=== PATIENT | female | born 1950 | race Caucasian/White ===

== ENCOUNTER 2021-09-06 09:58 | Emergency (ER) | payer MEDICARE ==
[~2021-09-06] VITALS: Ht 152.4 cm; Wt 69.4 kg
[~2021-09-06 09:58] MED LIST: LEVOTHYROXINE50 MCG PO; PRAVACHOL40 MG PO; VITAMIN D50000 UNI1 PO
[2021-09-06] MEDS ORDERED: PILOCARPINE HCL5 MG PO (10:21)
[2021-09-06] MEDS ORDERED: LISINOPRIL20 MG PO (10:21)
[2021-09-06] MEDS ORDERED: OXYBUTYNIN CHLO10 MG PO (10:21)
--- NOTE | 2021-09-07 13:47 | EKG ---
[facility] [address] [facility] [place], [place] [address] Signed Normal sinus rhythm Normal ECG No previous ECGs available Confirmed by YARIEL CARABALLO MD ([id number] on 09/07/2021 1:47:42 PM Electronically Signed By: YARIEL CARABALLO MD 09/07/21 1347 PATIENT NAME: ALANA ADAM Electrocardiogram DATE OF : 48 PHYSICIAN: YARIEL CARABALLO MD REPORT #: [id number] REPORT IS CONFIDENTIAL AND NOT TO BE RELEASED WITHOUT AUTHORIZATION
== END 2021-09-06 15:20 | disposition home or self-care (01) ==
LOC: ED 09:58
DX: R07.89 Other chest pain (principal); I10 Essential (primary) hypertension; E03.9 Hypothyroidism, unspecified; Z79.899 Other long term (current) drug therapy
CPT/HCPCS: 36415; 80053; 83735; 84484; 85025; 93005; 93010; 99284-25